=== PATIENT | female | born 1980 | race Caucasian/White ===

== ENCOUNTER 2018-06-24 07:44 | Day surgery (SDC) | payer BC ==
[~2018-06-24] VITALS: Ht 160 cm; Wt 88.8 kg
[2018-06-24] VITALS (13 sets, daily range): BP systolic 114–130; BP diastolic 60–79; PULSE 53–66; RESP 13–23; Ht 160 cm; Wt 88.8 kg
[~2018-06-24 07:44] MED LIST: DESFLURANE 15 MIN ONE; PROPOFOL 200 MG INJ ONE
--- NOTE | 2018-06-24 10:44 | PREOPHP ---
DATE OF ADMISSION: 06/24/2018 HISTORY OF PRESENT ILLNESS: This is a 38-year-old lady, 2, para 2. Her last normal menstrua l period was a few days prior to admission. She was admitted for dilation and curettage, hysteroscop y and suction curettage. This patient bleeds very heavy with her period that lasted at least 10 to 1 4 days for the last many months and getting worse up to the time of admission. She claims that her p eriods have always been heavy, but for last many months it is at least 2 to 3 times a month. She is known to have a small fibroid. The MRI showed a very tiny submucosal fibroid. She wanted to have th e above procedure. Procedures were explained to the patient and she understood everything totally. The risks, benefits, and alternatives were discussed with her as well. PAST PERSONAL HISTORY: No history of diabetes, TB, asthma. ALLERGIES: NO ALLERGIES. SOCIAL HISTORY: The patient does not smoke. She does not drink. MEDICATIONS: She does not take any drugs except iron. GYNECOLOGIC HISTORY: She had menarche at the age of 11, every 28 days interval, 3 to 4 days duration , and moderate in amount. FAMILY HISTORY: Noncontributory. OBSTETRICAL HISTORY: She is 2, para 2 with 2 C-sections. REVIEW OF SYSTEMS: CARDIOVASCULAR: No chest pains. RESPIRATORY: No cough. GASTROINTESTINAL: No diarrhea, no vomiting. GENITOURINARY: No dysuria. PHYSICAL EXAMINATION: GENERAL: Reveals a conscious, coherent lady and in no acute distress. VITAL SIGNS: Her blood pressure is 120/80, pulse rate 80 per minute, respirations 16 per minute. BREASTS, HEART AND LUNGS: Within normal limits. ABDOMEN: Soft. No organomegaly. PELVIC: Revealed the cervix to be firm, uterus of about 8 weeks' size, and adnexa were negative for masses. RECTAL: Confirmed the pelvic findings. EXTREMITIES: No pedal edema. ADMITTING DIAGNOSIS: Menometrorrhagia and a possible submucous fibroid. PLAN: The patient was planned to have the above procedure. The procedure was explained to her and s he understood everything totally. The risks, benefits, and alternatives were discussed with her as ton finley. Dictated By: JESS CURRY/BRAXTON Conf#: [id number] [facility]#: [id number]
--- NOTE | 2018-06-24 10:44 | PREAC ---
Date/Time of Note Date/Time of Note DATE: 06/24/18 TIME: 10:43 Anesthesia Eval and Record Evaluation Time Pre-Procedure Interview DATE: 06/24/18 TIME: 10:43 Age 38 Sex female NPO: 8 hrs Preoperative diagnosis vaginal bleeding Planned procedure D&C Past Medical History Past Medical History: Includes GI: Obesity Surgery & Anesthesia Issues No known issue Meds Anticoagulation: No Beta Angélica within 24 hr: No Reason Beta Angélica not given: Pt. not on B-Angélica No Active Prescriptions or Reported Meds Meds reviewed: Yes Allergies Coded Allergies: No Known Allergy (Unverified , 06/24/18) Allergies Reviewed: Yes Labs/Studies Labs Reviewed: Reviewed by anesthesiologist Blood Bank Test 06/23/18 14:20 Antibody Screen NEGATIVE Blood Type A POSITIVE test: Negative Pre-procedure Exam Last vitals Vital Signs Date Temp Pulse Resp B/P (MAP) Pulse Ox O2 O2 Flow FiO2 Time Delivery Rate 06/24/18 97.3 53 16 129/75 99 Room Air 08:56 (93) Airway: Adequate mouth opening, Adequate thyromental dist Mallampati: Mallampati II Teeth: Normal Lung: Normal Heart: Normal ASA Physical Status ASA physical status: 2 Emergency: None Planned Anesthetic General/MAC: ETT Pre-operative Attestations Prior to commencing anesthesia and surgery, the patient was re-evaluated, there was verification of: *The patient's identity *The results of appropriate recent lab work and preoperative vital signs *The above evaluation not changing prior to induction *Anesthetic plan, risk benefits, alternative and complications discussed with patient/family; questions answered; patient/family understands, accepts and wishes to proceed. RANI HUDDLESTON Jun 24, 2018 10:44
[2018-06-24] MEDS ORDERED: METOCLOPRAMIDE 10 MG INJ IV PRN (11:00)
[2018-06-24] MEDS ORDERED: DIPHENHYDRAMINE 50 MG INJ IV PRN (11:00)
[2018-06-24] MEDS ORDERED: ALBUTEROL 0.083% (NEB) 2.5 MG/3 ML AMP HHN PRN (11:00)
[2018-06-24] MEDS ORDERED: ONDANSETRON 4 MG INJ IV PRN (11:00)
[2018-06-24] MEDS ORDERED: MEPERIDINE 25 MG INJ IV PRN (11:00)
[2018-06-24] MEDS ORDERED: HYDROmorphONE 1 MG/5 ML IV SYRINGE IV PRN ×3 (11:00)
[2018-06-24] MEDS ORDERED: FENTAnyl 50 MCG/ML VIAL ONE (11:02)
[2018-06-24] MEDS ORDERED: SUCCINYLCHOLINE CHLORIDE 100 MG/5 ML SYG IV ONE (11:08)
[2018-06-24] MEDS ORDERED: PROPOFOL 20 ML ONE (11:08)
--- NOTE | 2018-06-24 11:18 | SIPON ---
Date/Time of Note Date/Time of Note DATE: 06/24/18 TIME: 11:16 Operative Report Preoperative Diagnosis MENOMETRORRHAGIA SUBMUCOUS FIBROID Postoperative Diagnosis MENOMETRORRHAGIA SUBMUCOUS FIBROID POSSIBLE ADENOMYOSIS Operation/Procedure Performed D&C HYSTEROSCOPY SUCTION CURETTAGE Surgeon see signature line operations and intelligence assistant CHURCH HISTORY PROFESSOR Anesthesia: general Estimated blood loss: minimal Transfusion Required none Specimen ECC EMC SUCTION CURETTAGE Grafts/Implants none Complications none JESS PARRA MD Jun 24, 2018 11:18
[2018-06-24] MEDS: FENTAnyl 50 MCG/ML VIAL IV PRN ×3 (11:30→11:46)
[2018-06-24] MEDS ORDERED: ACETAMINOPHEN 325 MG TAB PO PRN (11:30)
--- NOTE | 2018-06-24 14:10 | PAC ---
Date/Time of Note Date/Time of Note DATE: 06/24/18 TIME: 14:10 Post-Anesthesia Notes Post-Anesthesia Note Last documented vital signs Vital Signs Date Temp Pulse Resp B/P (MAP) Pulse Ox O2 O2 Flow FiO2 Time Delivery Rate 06/24/18 54 14 116/71 96 Room Air 12:10 (86) 06/24/18 98.0 11:38 Activity: WNL Respiratory function: WNL Cardiovascular function: WNL Mental status: Baseline Pain reasonably controlled: Yes Hydration appropriate: Yes Nausea/Vomiting absent: Yes RANI HUDDLESTON Jun 24, 2018 14:10
--- NOTE | 2018-06-25 05:05 | OPR ---
DATE OF OPERATION: 06/24/2018 PREOPERATIVE DIAGNOSES: Menometrorrhagia and submucous fibroid. POSTOPERATIVE DIAGNOSES: Menometrorrhagia and submucous fibroid. Pending pathology report. SURGEON: Jess Rodríguez MD. CONTROL OPERATOR FLOW COAT: Antwon hyatt. ANESTHESIA: General. ANESTHESIOLOGIST: . OPERATION PERFORMED: Hysteroscopy, fractional dilatation and curettage and suction curettage. OPERATIVE TECHNIQUE: Under general anesthesia, the patient was prepped and draped in the usual fashi on for vaginal surgery. Pelvic exam under anesthesia revealed the cervix to be firm, uterus of the u pper limit of normal, and adnexa were negative for masses. Then, the heavy weight vaginal retractor was put in place and the anterior lip of the cervix was grasped with an Allis clamp. Endocervical di latation up to Hegar 7 was proceeded, then the uterus was sounded to about 3 inches. Then the hyster oscope was inserted inside the uterine cavity and connected with the light source. The uterus was di stended with normal saline. There was a tiny 0.5 cm possible polyp or fibroid on the right upper fun alvarado portion of the uterus. Then, no other polyps seen. Endocervical curettage was done and a small amount of tissue was obtained. Endometrial curettage was done and a small amount of tissue was obtai fidencio. Suction tip size 6 was inserted inside the uterine cavity and suction curettage was done. A go od amount of tissue was obtained. The uterus was intact during and after the procedure. The patient tolerated the procedure well. Estimated blood loss was minimal. Vital signs stable during and afte r the procedure. Dictated By: JESS CURRY/NTS Conf#: [id number] DID#: [id number]
== END 2018-06-24 13:13 | disposition home or self-care (01) ==
LOC: SDS 07:44
PROVIDERS: ATTEND Obstetrics & Gynecology
DX: D25.0 Submucous leiomyoma of uterus (principal); N92.1 Excessive and frequent menstruation with irregular cycle; E66.9 Obesity, unspecified
CPT/HCPCS: 58558; 84702; 84703; 86850; 86900; 86901; 88305; J1170; J3010